=== PATIENT | female | born 1995 | race Caucasian/White ===

== ENCOUNTER 2022-08-23 08:25 | Outpatient (CLI) | payer MEDICAID ==
[~2022-08-23] VITALS: Ht 170.2 cm; Wt 92.1 kg
[~2022-08-23 08:25] MED LIST: COLACE 100100 MG/CAP PO; PRENATAL; PRILOSEC 20MG20 MG PO
--- NOTE | 2022-08-23 08:30 | NUR ---
Pt arrived on unit ambulatory for scheduled NST for twins. Pt reports occasional contractions, denies any leaking of fluid or vaginal bleeding and reports normal movement. EFM and toco monitors started. Vital signs WNL. Plan of care for NST reviewed.
== END 2022-08-23 09:10 | disposition home or self-care (01) ==
LOC: LDRO 08:25
DX: O30.93 Multiple gestation, unspecified, third trimester (principal); Z3A.36 36 weeks gestation of pregnancy